=== PATIENT | female | born 1965 | race Caucasian/White ===

== ENCOUNTER 2018-09-11 08:19 | Inpatient (IN) | payer OTHER, SELFPAY ==
[2018-09-11 09:00] LABS: #Basophils 0.1 thou/uL (0.0-0.2); #Eosinphils 0.2 thou/uL (0.0-0.7); #Lymphocytes 3.5 thou/uL (1.20-3.40); #Monocytes 0.7 thou/uL (0.11-0.59); #Neutrophils 6.5 thou/uL (1.40-6.50); %Basophils 0.9 % (0.0-1.0); %Eosinophils 1.6 % (0.0-10.0); %Lymphocytes 31.7 % (21.0-51.0); %Monocytes 6.6 % (0.0-10.0); %Neutrophils 59.2 % (42.0-75.0); Hemoglobin 7.7 g/dL (12.0-16.0); Mean Corpuscular HGB CONC 33.5 g/dL (32.0-36.0); Mean Corpuscular Hemoglobin 29.5 pg (27.0-31.0); Mean Platelet Volume 8.1 fL (7.4-10.4); Platelet Count 262 thou/uL (130-400); RBC Distribution Width 12.3 % (11.5-14.5); Red Blood Cell (RBC) Count 2.61 mill/uL (4.20-5.40)
[2018-09-11 09:03] LABS: INR-International Normal Ratio 1.1; PTT 25.3 SEC (22.9-36.1); Prothrombin Time 14.4 SEC (12.0-14.7)
[2018-09-11 09:20] LABS: ALT (SGPT) 41 U/L (8-55); AST (SGOT) 36 U/L (5-34); Albumin 4.2 g/dL (3.5-5.0); Alkaline Phosphatase 65 U/L (40-150); Anion Gap 14 mmol/L (10-20); BUN (Urea Nitrogen) 25 mg/dL (9.8-20.1); Bilirubin, Total 0.3 mg/dL (0.2-1.2); Calc. Creatinine Clearance 0 mL/min (70-130); Carbon Dioxide 23 mmol/L (22-29); Chloride 102 mmol/L (98-107); Estimated GFR-MDRD 73; Globulin 2.4 g/dL (2.4-3.5); Glucose 355 mg/dL (70-105); Potassium 4.3 mmol/L (3.5-5.1); Protein, Total 6.6 g/dL (6.0-8.3); Sodium 135 mmol/L (136-145)
[2018-09-11] MEDS ORDERED: Ondansetron PF 4 MG/2 ML Vial IVP PRN (12:06)
[2018-09-11] MEDS ORDERED: Dextrose 5% in Water 1,000 ML IV PRN (12:06)
[2018-09-11] MEDS ORDERED: Dextrose 50% Abboject 50 ML SYRINGE SLOW IVP PRN (12:06)
[2018-09-11 12:16] VITALS: BMI 38.0
[2018-09-11] MEDS: HumaLOG 300 UNITS/3 ML VIAL SC PRN ×2 (13:07→20:57)
[2018-09-11] MEDS: Sodium Chloride 0.9% 1,000 ML IV SCH (15:02)
[2018-09-11] MEDS ORDERED: metFORMIN 500 MG TAB PO SCH (18:00)
--- NOTE | 2018-09-11 19:48 | HP ---
CHIEF COMPLAINT: Generalized weakness, not feeling well, feeling short of breath and weak. HISTORY OF PRESENT ILLNESS: The patient is a 53-year-old female, who is evaluated in the emergency room for a few-day history of feeling generalized weak, not well, feeling cold with some shortness of breath on exertion with some abdominal pain on and off with nausea, but not vomiting. She denied any fever or chills. She denied any chest pain. She went to the urgent care yesterday, and today, when she was on her way to the emergency room, the urgent care staff called her that she needs to go to the emergency room because of anemia she was found on her lab testing yesterday. She does not have any menstrual cycles anymore. She is 5 years after the menopause. She did not have any black stools or tarry stools. She did not have any recent bleeding of any kind. She was found to have hemoglobin of 7.7 while in the emergency room being evaluated, and decision was made about the further investigation of her problem. Apparently, her sister was diagnosed with anal cancer at the age of 48. PAST MEDICAL HISTORY: 1. Diabetes mellitus. 2. Pontine CVA 2 years ago. 3. Scoliosis. 4. Peripheral neuropathy. 5. Arthritis. PAST SURGICAL HISTORY: Tonsillectomy. SOCIAL HISTORY: She used to smoke 1 pack per day for 30 years. She quit 2 years ago at the time when she had a stroke. She does not drink any alcohol. She does not use any illicit drugs. FAMILY HISTORY: As I mentioned, her sister had anal cancer diagnosed at the age of 48. She does not know much about her father, and her mother has diabetes mellitus. ALLERGIES: STRAWBERRIES. CURRENT MEDICATIONS: 1. Norvasc 5 mg once a day. 2. Aspirin 325 mg once a day. 3. Glyburide 2.5 mg once a day. 4. Metformin 1000 mg twice a day. 5. Neurontin 300 mg four times a day. 6. Tylenol No. 3 four times a day. REVIEW OF SYSTEMS: All 14 systems were reviewed, and they were negative except for the symptoms mentioned at HPI. PHYSICAL EXAMINATION: VITAL SIGNS: Blood pressure is 113/69, pulse is 103, respiratory rate is 16, and O2 saturation is 96% on room air. She is afebrile. HEENT: Head is atraumatic and normocephalic. Eyes, PERRLA. Sclerae are nonicteric. Conjunctivae are palish. Oral mucosa is moist. NECK: Supple. No lymphadenopathy. Thyroid is not palpable. LUNGS: Clear. HEART: S1 and S2, normal. No S3. No S4. No any murmur. ABDOMEN: Soft, nontender, and obese. Bowel sounds are present. No organomegaly. EXTREMITIES: No clubbing, cyanosis, or edema. NEUROLOGIC: She is alert and oriented x4. There are no any motor deficits. She is able to move all 4 extremities, and she follows my commands. LABORATORY DATA: Labs showed white count of 11.0, hemoglobin of 7.7, hematocrit 23.0, platelet count 262,000. Sodium of 135, potassium 4.3, chloride 102, CO2 of 23, BUN 25, creatinine 0.82, glucose 355. AST 36. INR 1.1. PT of 14.4. Guaiac on her stool is negative. IMPRESSION: 1. Normocytic anemia of unclear etiology at this point with negative guaiac stool. 2. Dehydration with signs of volume depletion. 3. Uncontrolled diabetes mellitus. 4. Chronic pain syndrome. 5. Scoliosis. 6. Peripheral neuropathy. 7. Arthritis. PLAN: Admission to observation. Condition is fair. Activity, bedrest and bathroom privileges with assistance. Diet, 2000 calories ADA diet. IV fluids, 100 mL of normal saline at 100 mL/hr. Peripheral blood smear, retic count, serial CBCs, GI consultation, DVT prophylaxis with SCDs. No Lovenox for now for chemical DVT prophylaxis, although I do not see any evidence that she is bleeding, but this could be intermittent. Apparently, her sister was diagnosed with anal cancer at the age of 48. We are going to do Accu-Cheks on her a.c. and h.s. covering with Humalog moderate sliding scale, and we will continue her home medications when the list is ready to be reconciled. Job ID: [id number]
[2018-09-11] MEDS: Pantoprazole 40 MG VIAL IVP SCH (20:40)
[2018-09-11] MEDS: Gabapentin 300 MG CAP PO SCH (20:40)
[2018-09-11] MEDS: Acetaminophen/Codeine 30-300mg Tablet PO PRN (20:49)
[2018-09-11] MEDS ORDERED: Famotidine 20 MG TAB PO SCH (21:00)
--- NOTE | 2018-09-12 00:28 | CON ---
DATE OF CONSULTATION: 09/11/2018 REASON FOR CONSULT: Symptomatic anemia. HISTORY OF PRESENT ILLNESS: Ms. Martin notes that over the past several days dating to this weekend, she has felt very fatigued and tired. She has had diaphoresis and feels she can hear heart beating in her ears at times. She began to feel so weak she ultimately went to an urgent care clinic today. The patient reports in the past week or two, she has been nauseated. She did not want to eat much with some upper abdominal pain. She has chronic constipation and she is on Tylenol No.3. Apparently, when she got here, her hemoglobin was 7.9, it had been 15 in August of 2016, I see no records at this facility. Since then, the patient notes she does not see a doctor regularly. She does take ibuprofen fairly regularly for chronic back pain. She does take an aspirin a day for history of stroke a couple of years ago. She did have a black stool about three days ago. She has been taking some Zantac at home. She denies taking Pepto-Bismol. REVIEW OF SYSTEMS: Negative for dysphagia or odynophagia. Negative for headaches. Negative for vision change. Negative of chest pain or shortness of breath. She has had some dyspnea and some diaphoresis. GI, she denies any bright red blood per rectum, lower abdominal pain, or rectal outlet bleeding. Skin, musculoskeletal, neurologic, and hemolytic are normal. PAST MEDICAL HISTORY: Stroke with right-sided defect two years ago, history of cardiomegaly, history of diabetes type 2, history of arthritis, and history of scoliosis. PAST SURGICAL HISTORY: Bilateral tonsillectomy. GYNECOLOGIC HISTORY: She has been postmenopausal for 5 years. SOCIAL HISTORY: Drinks socially twice a month. Does not use drugs. Does not smoke. ALLERGIES: LISINOPRIL. MEDICATIONS: Home medications; 1. Norvasc. 2. Metformin. 3. Glyburide. 4. Neurontin. 5. Tylenol No.3. 6. Ibuprofen. 7. Aspirin. 8. Colace. 9. Zantac. Present medication is Zofran. PHYSICAL EXAMINATION: VITAL SIGNS: Pulse 99 to 102, temperature 97, and blood pressure 169/78. In the ER, her pulse was 104 on presentation. HEENT: Conjunctivae and sclerae are clear. Mucous membranes are pale and moist. NECK: Supple without lymphadenopathy. LUNGS: Clear. HEART: Regular rate and rhythm. No rubs, gallops, or murmurs. ABDOMEN: Soft and nontender with no rebound or guarding. EXTREMITIES: No clubbing, cyanosis, or edema. LABORATORY DATA: White count is 11, hemoglobin 7.7, it was 7.9 last night; white count was 13.9 last night; and platelet count is 262. Chemistries, BUN and creatinine were 36 and 0.68 on admission, yesterday 25 and 0.82 today. Alkaline phosphatase is normal. AST is 36 and ALT is 41. No iron studies have been performed. There has been no transfusions. ASSESSMENT: History of melena presentation with some vague upper abdominal symptoms, nausea about the past week. Now, she has come in with severe symptomatic anemia, palpitations, diaphoresis, and history of black stool over the weekend. She is mildly tachycardic, but hemodynamically stable. She has been in the hospital since yesterday with a stable hemoglobin of 7.7 to 7.9. RECOMMENDATIONS: 1. IV PPI. 2. No NSAIDs. 3. EGD tomorrow. 4. The patient may need a colonoscopy in the future depending on the findings of the EGD. She has a sister with anal cancer, but presently she has no rectal bleeding. She has a history of melena. She has nausea, does not think she can drink a bowel prep. We will proceed with endoscopy tomorrow. Serial H and H in the meantime. Job ID: [id number]
[2018-09-12] MEDS: Sodium Chloride 0.9% 1,000 ML IV SCH ×4 (01:18→18:38)
[2018-09-12] MEDS: Acetaminophen/Codeine 30-300mg Tablet PO PRN ×3 (03:18→21:03)
[2018-09-12 05:36] LABS: #Basophils 0.1 thou/uL (0.0-0.2); #Eosinphils 0.2 thou/uL (0.0-0.7); #Lymphocytes 3.1 thou/uL (1.20-3.40); #Monocytes 0.5 thou/uL (0.11-0.59); #Neutrophils 3.2 thou/uL (1.40-6.50); %Basophils 0.7 % (0.0-1.0); %Eosinophils 2.7 % (0.0-10.0); %Monocytes 7.3 % (0.0-10.0); %Neutrophils 45.3 % (42.0-75.0); Hemoglobin 6.3 g/dL (12.0-16.0); Mean Corpuscular HGB CONC 35.2 g/dL (32.0-36.0); Mean Corpuscular Hemoglobin 31.4 pg (27.0-31.0); Mean Corpuscular Volume 89.4 fL (78.0-98.0); Platelet Count 195 thou/uL (130-400); RBC Distribution Width 12.5 % (11.5-14.5)
[2018-09-12 09:02] LABS: Iron 54 ug/dL (50-170); Iron Binding Capacity, Total 335 mcg/dL (265-497)
[2018-09-12] MEDS: metFORMIN 500 MG TAB PO SCH ×2 (09:32→16:39)
[2018-09-12] MEDS: glyBURIDE 2.5 MG TAB PO SCH (09:32)
[2018-09-12] MEDS ORDERED: Promethazine HCl 25 MG/ML VIAL IM PRN (11:09)
[2018-09-12] MEDS ORDERED: Promethazine HCl 25 MG/ML VIAL SLOW IVP PRN (11:09)
[2018-09-12] MEDS ORDERED: Ondansetron HCl/PF 4 MG/2 ML Vial IVP PRN (11:09)
[2018-09-12] MEDS: Pantoprazole 40 MG VIAL IVP SCH ×2 (12:52→21:03)
[2018-09-12] MEDS: Gabapentin 300 MG CAP PO SCH ×4 (12:52→21:03)
[2018-09-12] MEDS: Amlodipine 5 MG TAB PO SCH (12:53)
[2018-09-12] MEDS: Aspirin 325 mg Enteric Coated Tablet PO SCH (13:03)
--- NOTE | 2018-09-12 14:02 | PRG ---
DATE OF SERVICE: 09/12/2018 SUBJECTIVE: The patient is seen and examined at the bedside. She just came back from procedure room, where she had upper endoscopy of her stomach and duodenum. She is feeling fine. She does not have much complaints to offer. OBJECTIVE: VITAL SIGNS: Blood pressure is 153/82, pulse is 86, temperature is 97.6, O2 saturation is 94% on room air, and respiratory rate is 16. HEAD: Atraumatic and normocephalic. Eyes are PERRLA. Sclerae are nonicteric. Conjunctivae palish. Oral mucosa is moist. NECK: Supple. No lymphadenopathy. Thyroid is not palpable. LUNGS: Clear. HEART: S1 and S2 normal, no S3, no S4, without any murmur. ABDOMEN: Soft, obese, and mildly distended. No organomegaly. EXTREMITIES: No clubbing, cyanosis, or edema. NEUROLOGIC: She is alert and oriented x4. There are no any sensory or motor deficits present. Cranial nerves are intact. LABORATORY DATA: White count of 7.0, hemoglobin of 6.3, hematocrit 17.8, and platelet count is 195,000. Retic count is 7.0, immature retic fraction 0.574. Iron is 54, total iron binding capacity is 335, ferritin is 80.6. IMPRESSION: 1. Symptomatic anemia, status post upper gastrointestinal scoping with negative results. The patient is going to be prepped for tomorrow morning for colonoscopy. She has elevated retic count, which suggest of good bone marrow function. 2. Dehydration with signs of volume depletion. 3. Uncontrolled diabetes mellitus, improved. 4. Chronic pain syndrome. 5. Scoliosis. 6. Peripheral neuropathy. 7. Arthritis. PLAN: The plan is prep of the colon tomorrow morning. Continue Protonix 40 mg IV push q.12 hours. Continue Accu-Cheks a.c. and at bedtime. Continue metformin and glyburide. Continue amlodipine and stop Zantac since she is on PPI, and she is scheduled for tomorrow morning colonoscopy. Job ID: [id number]
--- NOTE | 2018-09-12 14:17 | OP ---
DATE OF PROCEDURE: 09/12/2018 PROCEDURE PERFORMED: Esophagogastroduodenoscopy. PREMEDICATIONS: Given by Anesthesiology Department. PREPROCEDURE DIAGNOSES: 1. Severe anemia. 2. Vague upper abdominal pain. POSTPROCEDURE DIAGNOSIS: Normal upper endoscopy. PROCEDURE IN DETAIL: Written consents were obtained prior to the procedure. After adequate sedation, forward-viewing endoscope was advanced down the stomach under direct vision into the third portion of the duodenum. The duodenum appeared normal. Pylorus was patent. The gastric antrum, body, fundus, and cardia all appeared normal. Retroflexion was normal. The GE junction was noted at 35 cm from the incisors. The lower, mid, and upper esophagus appeared normal. No source of bleeding was identified. ASSESSMENT: Normal upper endoscopy. RECOMMENDATION: Proceed with colonoscopy in a.m. Job ID: [id number]
[2018-09-12 16:34] LABS: Hemoglobin 8.3 g/dL (12.0-16.0)
[2018-09-12] MEDS ORDERED: PROPOFOL 200 MG/20 ML VIAL ONE (18:18)
[2018-09-12] MEDS ORDERED: Lidocaine 1% PF 5 ML VIAL ONE (18:18)
[2018-09-12] MEDS ORDERED: GoLYTELY 4,000 ml Bottle PO SCH (18:30)
[2018-09-13] MEDS: Sodium Chloride 0.9% 1,000 ML IV SCH ×2 (01:53→14:29)
[2018-09-13 06:02] LABS: #Eosinphils 0.3 thou/uL (0.0-0.7); #Lymphocytes 3.3 thou/uL (1.20-3.40); #Monocytes 0.6 thou/uL (0.11-0.59); #Neutrophils 3.9 thou/uL (1.40-6.50); %Basophils 0.6 % (0.0-1.0); %Eosinophils 3.6 % (0.0-10.0); %Lymphocytes 40.2 % (21.0-51.0); %Monocytes 7.5 % (0.0-10.0); %Neutrophils 48.2 % (42.0-75.0); Hemoglobin 8.8 g/dL (12.0-16.0); Mean Corpuscular HGB CONC 34.5 g/dL (32.0-36.0); Mean Corpuscular Hemoglobin 31.3 pg (27.0-31.0); Mean Corpuscular Volume 90.8 fL (78.0-98.0); Mean Platelet Volume 8.6 fL (7.4-10.4); Platelet Count 221 thou/uL (130-400); Red Blood Cell (RBC) Count 2.82 mill/uL (4.20-5.40); White Blood Cell (WBC) Count 8.1 thou/uL (4.8-10.8)
[2018-09-13] MEDS: Aspirin 325 mg Enteric Coated Tablet PO SCH (07:59)
[2018-09-13] MEDS: metFORMIN 500 MG TAB PO SCH ×2 (07:59→17:31)
[2018-09-13] MEDS: glyBURIDE 2.5 MG TAB PO SCH (07:59)
[2018-09-13] MEDS: Gabapentin 300 MG CAP PO SCH ×3 (07:59→17:31)
[2018-09-13] MEDS: Pantoprazole 40 MG VIAL IVP SCH (08:01)
[2018-09-13] MEDS: Amlodipine 5 MG TAB PO SCH (08:05)
[2018-09-13] MEDS: Acetaminophen/Codeine 30-300mg Tablet PO PRN (08:06)
[2018-09-13] MEDS ORDERED: PROPOFOL 200 MG/20 ML VIAL ONE (10:01)
[2018-09-13] MEDS ORDERED: Ondansetron HCl/PF 4 MG/2 ML Vial IVP PRN (12:25)
[2018-09-13] MEDS ORDERED: Promethazine HCl 25 MG/ML VIAL SLOW IVP PRN (12:25)
[2018-09-13] MEDS ORDERED: Promethazine HCl 25 MG/ML VIAL IM PRN (12:25)
[2018-09-13 17:11] VITALS: BP 118/69; TEMP 98.1
--- NOTE | 2018-09-13 19:19 | OP ---
DATE OF PROCEDURE: 09/13/2018 PROCEDURE PERFORMED: Colonoscopy (diagnostic). INDICATION FOR PROCEDURE: Symptomatic anemia/anemia of unknown origin, possible melena. DESCRIPTION OF PROCEDURE: After the risks and benefits of the procedure were explained to the patient including risks of bleeding, infection, perforation, reactions to anesthesia, aspiration and/or pain, informed consent was obtained. The patient was then taken to the endoscopy suite, where deep sedation was administered via propofol and anesthesia support. Once adequate sedation was achieved, the patient was maneuvered into the left lateral decubitus position and an external rectal examination was performed. Once this was completed, the standard colonoscope was introduced into the rectum and advanced to the terminal ileum with mild difficulty due to tortuosity of the colon, requiring manual abdominal pressure to facilitate passage of the scope. The quality of the prep was fair initially with a moderate amount of dark black granular stool seen throughout the entire colon, but was amenable to aggressive irrigation and suctioning, and converted to a good/adequate prep. The patient tolerated the procedure well with no immediate perioperative complications. Once the procedure was complete, all equipment was removed from the patient. She was transferred to PACU in satisfactory condition. COLONOSCOPY FINDINGS: Digital rectal exam, small perianal skin tags and small external hemorrhoids were seen on external examination. COLON FINDINGS: Normal-appearing mucosa was seen at the terminal ileum as well as at the ileocecal valve and appendiceal orifice. A moderate amount of black granular appearing retained stool was seen throughout the entire colon that was amenable to aggressive irrigation and suctioning. There was no evidence of this within the ileum indicating, there was a probable colonic origin. There was also mild darkening of the colonic mucosa in a leopard skin print pattern throughout the entire colon, but most especially within the right colon consistent with melanosis coli. Otherwise normal-appearing mucosa was seen in the cecum, ascending colon, transverse colon, and descending colon. In the distal descending and sigmoid colon, multiple small and medium sized diverticula were seen without any evidence of colonic luminal narrowing, increased mucosal erythema, purulence, or bleeding in this region. Normal-appearing mucosa was then seen in the rectum with small internal hemorrhoid seen on rectal retroflexion. IMPRESSION: 1. Moderate amount of black granular retained stool seen throughout the entire colon that was amenable to irrigation and suctioning with adequate visualization of the colonic mucosa achieved. 2. Mild darkening of the colonic mucosa in a leopard skin print pattern, consistent with mild melanosis coli. 3. Moderate left-sided diverticulosis. 4. Internal and external hemorrhoids. 5. No etiology for the patient's anemia was seen during this examination. RECOMMENDATIONS: 1. We continue to trend H and H, and transfuse as necessary to maintain H and H of 04/21. 2. Continue to monitor clinically for signs of active GI bleeding. 3. Upon review of the patient's labs, she has a normal MCV and normal RDW making a chronic blood-loss picture highly unlikely with no evidence of iron deficiency anemia as well. Capsule endoscopy is not indicated at this time. 4. Would consider a non GI source of her anemia. We will sign off at this time. Please call with any additional questions. Job ID: [id number]
--- NOTE | 2018-09-14 06:40 | DIS ---
DATE OF ADMISSION: 09/11/2018 DATE OF DISCHARGE: 09/13/2018 PROCEDURE: Upper gastrointestinal scoping and colonoscopy. FINAL DIAGNOSES: 1. Symptomatic anemia. 2. Dehydration with signs of volume depletion. 3. Uncontrolled diabetes mellitus, improved. 4. Chronic pain syndrome. 5. Scoliosis. 6. Peripheral neuropathy. 7. Arthritis. HOSPITAL COURSE: The patient is a 53-year-old female with symptoms of generalized weakness, feeling cold, and short of breath on exertion with some abdominal pain on and off with some nausea, but no vomiting, who went to the Urgent Care and was found to have anemia with hemoglobin low in around 7. She was sent to the emergency room for further evaluation. Her hemoglobin in the emergency room was 7.7. She got admitted to the hospital for further evaluation. Her white count was 11.0, hemoglobin 7.7, hematocrit 23.0, platelet count 262,000. Sodium 135, potassium 4.3, chloride 102, CO2 of 23, BUN 25, creatinine 0.82, glucose 355, AST is 36. INR 1.1. PT 14.4. Guaiac on her stool was negative. The patient got admitted to the medical floor with IV fluids. She was found to have hemoglobin down to 6.3 and she was seen by a bulb weeder who recommended upper and lower GI scoping. She was scoped on the stomach and duodenum. She was transfused with 2 units of packed red blood cells. Her hemoglobin went up to 8.3 and today is 8.8. She underwent colonoscopy and both procedures came back negative for any bleeding or any other pathology. Her retic count was up to 7.0 and immature retic fraction was 0.574. Her glycemia was ranging from 147 to 187. Ferritin came back at 80.67. She is doing well. PHYSICAL EXAMINATION: VITAL SIGNS: Her blood pressure is 132/69, pulse is 75, temperature 98, and respiratory rate is 18, O2 saturation is 93 on room air. GENERAL: She is seen and examined before she is discharged. LUNGS: Clear. HEART: S1 and S2, normal. No S3. No S4. No any murmur. ABDOMEN: Soft and nontender. Bowel sounds are present. No organomegaly. EXTREMITIES: She is able to ambulate without any assistance and without any shortness of breath. DISPOSITION: She is discharged home. ACTIVITY: As tolerated. DIET: 2000 calories ADA diet. MEDICATIONS AT THE TIME OF DISCHARGE: 1. Ferrous sulfate 325 mg twice a day. 2. Amlodipine 5 mg once a day. 3. Aspirin 325 mg once a day. 4. Glyburide 2.5 mg once a day. 5. Metformin 1000 mg twice a day. 6. Tylenol No. 3 one to two tablets every 6 hours p.r.n. for the pain. 7. Gabapentin 300 mg 4 times a day. 8. Zantac 150 mg twice a day. FOLLOWUP: She is going to follow up with Dr. Galdamez in 2 weeks. TIME SPENT: Time spent on this discharge is less than 30 minutes. Job ID: [id number]
== END 2018-09-13 17:38 | disposition home or self-care (01) | DRG 812 ==
LOC: ERS 08:19 → OBSVTOIN 12:05 → T4-B 12:05
PROVIDERS: ADMIT Internal Medicine; ATTEND Internal Medicine
PROC: 0DJ08ZZ Inspection of Upper Intestinal Tract, Via Natural or Artificial Opening Endoscopic (ICD-10-PCS; principal; 2018-09-12)
PROC: 30233N1 Transfusion of Nonautologous Red Blood Cells into Peripheral Vein, Percutaneous Approach (ICD-10-PCS; 2018-09-12)
PROC: 0DJD8ZZ Inspection of Lower Intestinal Tract, Via Natural or Artificial Opening Endoscopic (ICD-10-PCS; 2018-09-13)
DX: D64.9 Anemia, unspecified (principal); E86.0 Dehydration; K64.8 Other hemorrhoids; K63.89 Other specified diseases of intestine; K64.4 Residual hemorrhoidal skin tags; K57.30 Diverticulosis of large intestine without perforation or abscess without bleeding; E11.65 Type 2 diabetes mellitus with hyperglycemia; Z86.73 Personal history of transient ischemic attack (TIA), and cerebral infarction without residual deficits; E11.42 Type 2 diabetes mellitus with diabetic polyneuropathy; Z80.0 Family history of malignant neoplasm of digestive organs; M19.90 Unspecified osteoarthritis, unspecified site; R10.10 Upper abdominal pain, unspecified; Z87.891 Personal history of nicotine dependence; G89.4 Chronic pain syndrome; K59.09 Other constipation; M41.9 Scoliosis, unspecified; Z87.19 Personal history of other diseases of the digestive system; Z79.84 Long term (current) use of oral hypoglycemic drugs; Z79.82 Long term (current) use of aspirin; Z79.1 Long term (current) use of non-steroidal anti-inflammatories (NSAID)
CPT/HCPCS: 36415; 36416; 36430; 80053; 82274; 82728; 83540; 83550; 85025; 85046; 85379; 85610; 85730; 86850; 86900; 86901; C9113; J2001; J2405; J2704; P9016